=== PATIENT | male | born 1975 | race Caucasian/White ===

== ENCOUNTER 2022-05-17 10:40 | Observation (INO) ==
[2022-05-17] MEDS ORDERED: SODIUM CHLORIDE 0.9% 1000ML 1,000 ML IV ONE (11:02)
[2022-05-17] MEDS ORDERED: KETOROLAC TROMETHAMINE 15 MG/ML VIAL IV STA (11:22)
[2022-05-17] MEDS ORDERED: ONDANSETRON INJ 2 MG/ML 2 ML VIAL IV STA (11:22)
--- NOTE | 2022-05-17 11:28 | Emergency Department Note ---
Impression & Plan Lower abdominal pain, Acute appendicitis, Leukocytosis ED Provider Note NAME: DESEAN IYER AGE: 47 SEX: M : 1975 ARRIVES VIA: Walk-In INFORMANT: [Patient] ED PROVIDER(S): [Andres Santoyo MD] CHIEF COMPLAINT: Abdominal pain HISTORY OF PRESENT ILLNESS: The patient is a 47-year-old male presents to the ED with 4 days of lower abdominal pain which seems to have localized to the right. The pain is a 5 or 6 on a scale of 1 out of 10. The pain is worse with sitting or moving. He has had some nausea without vomiting. He has had a low-grade fever. No urinary complaints. He has not had any respiratory complaints. The patient states that he thought he might be constipated. He did take some MiraLAX and has since had 2 bowel movements although, he does not feel much better. PMHx/PSHx: See Below SOCIAL HISTORY: See Below. PHYSICAL EXAM: GENERAL: Patient is in no acute distress. HEENT: No acute trauma, normocephalic atraumatic, mucous membranes moist, no nasal congestion. NECK: No stridor, no adenopathy, no meningismus, trachea is midline. LUNGS: Clear to auscultation bilaterally, no wheeze, no rhonchi, breath sounds equal. HEART: Without murmurs gallops or rubs, regular rate and rhythm. ABDOMEN: Soft. Moderately tender to the lower abdomen, mostly on the right, right lower quadrant peritonitis suspected. EXTREMITIES: No cyanosis or edema, full range of motion of all the joints without pain or difficulty, no signs for acute trauma. NEUROLOGIC: Oriented x 3, no acute motor or sensory deficits, no focal weakness. SKIN: No rash, no jaundice, no diaphoresis. DIFFERENTIAL DIAGNOSIS: Appendicitis, testicular torsion, diverticulitis, UTI, obstruction, mesenteric ischemia, aortic pathology, inflammatory bowel disease, renal colic, PUD, pancreatitis, biliary pathology, hernia, volvulus, constipation, as well as other pathologies. EMERGENCY DEPARTMENT COURSE/PROCEDURES: Prior/Outside records reviewed: None MEDICAL DECISION MAKING: There is a significant leukocytosis at 21,000, this would be consistent with infection. There is a normal hemoglobin and platelet count. Sodium slightly low at 132. No renal failure. No concerning liver enzyme elevation. No evidence for pancreatitis. Urinalysis showed evidence for dehydration, no obvious infection. COVID test returned negative. Abdominal and pelvis CT did show evidence for appendicitis with rupture and small abscess formation. On exam, the patient was quite tender in the right lower quadrant. Patient received IV saline, 1 L. He was given IV Zosyn as antibiotic coverage. Patient received IV Zofran for nausea, IV Toradol for pain. I did speak with general surgery. The patient was seen in the ED by general surgery. The decision was made to take the patient to the operating room. I did talk with case management, the patient is aware of all of his findings. DISPOSITION: Hospital admission and surgical intervention was warranted. Past Med/Surg History Medical History Acute perforated appendicitis Rapid atrial fibrillation controlled w/ diet and alprazolam- states need alprazolam very rarely- uses 3-4 x per yr-last cardio visit 2012- [place] Surgical History S/P tooth extraction wisdom teeth S/P vasectomy Family History Grandfather Prostate cancer Father Prostate cancer Family/Other Myocardial infarction Diabetes Stroke Denies family history of Ovarian cancer Breast cancer Colorectal cancer Social History Smoking Status: Never smoker Second Hand Exposure: No; Hx Alcohol Use: No Hx Substance Use: No Preferred Language: Estonian Communication Ability: Effective Visual Impairment: No Limitations Hearing Ability: Normal Rock Drill Operator Required: No Beliefs That Will Affect Care: None marital status: Current Living Situation: Spouse and Family current occupational status: employed Other Information That Helps Us Care for You: No Feels Safe at Home: Yes Safety Concerns: Feels Safe At This Time Childhood Exposure to Second-Hand Smoke: Yes Dental Care, Regularly: Yes Physical Activity Frequency: 1-2 Times per Week Seatbelt Use: always Sunscreen Use: Yes Assistive Devices: Contacts and Glasses Allergies Allergies Allergy/AdvReac Type Severity Reaction Status Date / Time No Known Drug Allergies Allergy Unknown ` Verified 05/17/22 12:54 Home Meds Previous Rx's Medication Instructions Recorded alprazolam 0.5 mg tablet 0.5 mg PO DAILY PRN A-fib #20 tabs 10/07/21 Results & Data (ED) Vital Signs Vital Signs - 24 hr 05/17/22 10:44 05/17/22 14:30 05/17/22 16:29 Temperature 36.2 C L 37.6 C H 36.5 C Temperature Source Temporal Artery Scan Oral Temporal Artery Scan Pulse Rate 98 H Pulse Rate [Apical] 99 H 86 Pulse Rhythm [Apical] Regular Regular Pulse Strength [Apical] Normal Respiratory Rate 20 20 18 Respiratory Effort / Characteristics Non-Labored Non-Labored Spontaneous Normal for Patient Non-Labored Spontaneous Normal for Patient Respiratory Depth Normal Normal Normal Respiratory Pattern Regular Regular Blood Pressure 118/75 Blood Pressure [Left Arm] 129/84 147/97 H Blood Pressure Mean 89 Blood Pressure Mean [Left Arm] 99 113 Blood Pressure Position [Left Arm] Semi-fowlers Semi-fowlers Pulse Oximetry 95 96 94 Oxygen Delivery Method Room Air Room Air Oxymask Oxygen Flow Rate 6 Sepsis Recent Fever Within 48 Hours No Sepsis New/Unexplained Change in Mental Status N/A Sepsis Action Taken by Nursing No Action Required Home Medications Current Medication List: was personally reviewed by me Laboratory Data Attestation: I reviewed the patient's lab results. 05/17/22 12:08 05/17/22 12:08 Lab Results 05/17/22 05/17/22 05/17/22 Range/Units 11:33 12:08 12:08 WBC 21.15 H (4.8-10.8) K/ul RBC 4.78 (4.63-6.08) M/uL Hgb 14.4 (14.0-18.0) g/dl Hct 40.4 (40.1-51.0) % MCV 84.5 (80.0-100.0) fL MCH 30.1 (25.0-34.0) pg MCHC 35.6 (32.0-36.0) g/dL RDW Std Deviation 39.2 (36.4-46.3) fL RDW Coeff of Whitney 12.7 (11.5-14.5) % Plt Count 189 (130-400) K/uL MPV 10.6 (9.4-12.4) fL Immature Gran % (Auto) 0.7 % Neut % (Auto) 82.1 % Lymph % (Auto) 6.9 % [place] % (Auto) 10.1 % Eos % (Auto) 0.0 % Baso % (Auto) 0.2 % Neut # (Auto) 17.38 H (1.4-6.5) K/uL Lymph # (Auto) 1.46 (1.2-3.4) K/uL [place] # (Auto) 2.13 H (0.24-0.82) K/uL Eos # (Auto) 0.00 (0-0.50) K/uL Baso # (Auto) 0.04 (0-0.2) K/uL Immature Gran # (Auto) 0.14 H (0.00-0.02) K/uL Sodium 132 L (136-145) mmol/L Potassium 3.7 (3.5-5.1) mmol/L Chloride 100 (98-107) mmol/L Carbon Dioxide 25 (21-32) mmol/L Anion Gap 7 (3-11) BUN 11 (6-23) mg/dl Creatinine 0.82 (0.6-1.4) mg/dl Est Cr Clr Drug Dosing 120.9 ml/min Est GFR ( Amer) 121.2 ml/min Est GFR (Non-Af Amer) 104.6 ml/min BUN/Creatinine Ratio 13.4 (10-20) Glucose 118 H (70-99(Fasting)) mg/dl Calcium 9.1 (8.5-10.1) mg/dl Total Bilirubin 1.2 H (0.2-1.0) mg/dl AST 13 (13-39) U/L ALT 13 (7-52) U/L Alkaline Phosphatase 73 (34-104) U/L Total Protein 7.1 (6.0-8.3) gm/dl Albumin 3.9 (3.4-5.0) gm/dl Globulin 3.2 (2.5-4.0) gm/dl Albumin/Globulin Ratio 1.2 (0.9-2) Lipase 8 L (11-82) U/L Urine Color [place] Urine Appearance Clear (Clear) Urine pH 6.0 (4.5-7.5) Ur Specific [place] 1.029 (1.000-1.030) Urine Protein 1+ H (Negative) Urine Glucose (UA) Negative (Negative) Urine Ketones 4+ H (Negative) Urine Blood Negative (Negative) Urine Nitrite Negative (Negative) Urine Bilirubin 1+ H (Negative) Urine Urobilinogen Positive H (Negative) Ur Leukocyte Esterase Trace H (Negative) Urine WBC (Auto) 1-5 (0-5) /hpf Urine RBC (Auto) 0-4 (0-4) /hpf U Hyaline Cast (Auto) 5-10 H (0-5) /lpf U Epithel Cells (Auto) 10-20 H (0-5) /lpf Urine Bacteria (Auto) Negative (Negative) SARS-CoV-2, RNA, NAAT (NEGATIVE) 05/17/22 Range/Units 12:17 WBC (4.8-10.8) K/ul RBC (4.63-6.08) M/uL Hgb (14.0-18.0) g/dl Hct (40.1-51.0) % MCV (80.0-100.0) fL MCH (25.0-34.0) pg MCHC (32.0-36.0) g/dL RDW Std Deviation (36.4-46.3) fL RDW Coeff of Whitney (11.5-14.5) % Plt Count (130-400) K/uL MPV (9.4-12.4) fL Immature Gran % (Auto) % Neut % (Auto) % Lymph % (Auto) % [place] % (Auto) % Eos % (Auto) % Baso % (Auto) % Neut # (Auto) (1.4-6.5) K/uL Lymph # (Auto) (1.2-3.4) K/uL [place] # (Auto) (0.24-0.82) K/uL Eos # (Auto) (0-0.50) K/uL Baso # (Auto) (0-0.2) K/uL Immature Gran # (Auto) (0.00-0.02) K/uL Sodium (136-145) mmol/L Potassium (3.5-5.1) mmol/L Chloride (98-107) mmol/L Carbon Dioxide (21-32) mmol/L Anion Gap (3-11) BUN (6-23) mg/dl Creatinine (0.6-1.4) mg/dl Est Cr Clr Drug Dosing ml/min Est GFR ( Amer) ml/min Est GFR (Non-Af Amer) ml/min BUN/Creatinine Ratio (10-20) Glucose (70-99(Fasting)) mg/dl Calcium (8.5-10.1) mg/dl Total Bilirubin (0.2-1.0) mg/dl AST (13-39) U/L ALT (7-52) U/L Alkaline Phosphatase (34-104) U/L Total Protein (6.0-8.3) gm/dl Albumin (3.4-5.0) gm/dl Globulin (2.5-4.0) gm/dl Albumin/Globulin Ratio (0.9-2) Lipase (11-82) U/L Urine Color Urine Appearance (Clear) Urine pH (4.5-7.5) Ur Specific [place] (1.000-1.030) Urine Protein (Negative) Urine Glucose (UA) (Negative) Urine Ketones (Negative) Urine Blood (Negative) Urine Nitrite (Negative) Urine Bilirubin (Negative) Urine Urobilinogen (Negative) Ur Leukocyte Esterase (Negative) Urine WBC (Auto) (0-5) /hpf Urine RBC (Auto) (0-4) /hpf U Hyaline Cast (Auto) (0-5) /lpf U Epithel Cells (Auto) (0-5) /lpf Urine Bacteria (Auto) (Negative) SARS-CoV-2, RNA, NAAT NEGATIVE (NEGATIVE) Administered Medications Lactated Ringer's (Lr) 1,000 mls @ 100 mls/hr IV .Q10H YOEL Stop: 06/16/22 18:02 Last Admin: 05/17/22 18:19 Dose: 100 mls/hr Documented By: RT Piperacillin Sod/Tazobactam (Sod 3.375 gm/ Dextrose) 115 mls @ 28.75 mls/hr IV Q8H YOEL; Protocol Stop: 05/27/22 18:29 Last Infusion: 05/17/22 19:07 Dose: 28.8 mls/hr Documented By: Infusion: 05/17/22 18:51 Dose: 0 mls/hr Documented By: Admin: 05/17/22 18:51 Dose: 28.8 mls/hr Documented By: RT Ondansetron HCl (Ondansetron Inj 2 Mg/Ml 2 Ml Vial) 4 mg IV Q4H PRN PRN Reason: Nausea And Vomiting Stop: 06/16/22 18:02 Last Admin: 05/17/22 18:21 Dose: 4 mg Documented By: RT Discontinued Medications Bupivacaine HCl (Bupivacaine 0.5 % 5 Mg/1 Ml Mpf 30ml Vial) Confirm Administered Dose 30 ml .ROUTE .STK-MED ONE Stop: 05/17/22 14:09 Last Admin: 05/17/22 16:11 Dose: 30 ml Documented By: JAMES Sodium Chloride (Nss 1000ml) 1,000 mls @ 999 mls/hr IV .Q1H1M ONE Stop: 05/17/22 12:02 Last Infusion: 05/17/22 13:51 Dose: 0 mls/hr Documented By: Admin: 05/17/22 12:10 Dose: 999 mls/hr Documented By: CHARO Piperacillin Sod/Tazobactam Sod (Zosyn) 4.5 gm in 120 mls @ 240 mls/hr IV NOW ONE Stop: 05/17/22 12:34 Last Infusion: 05/17/22 13:50 Dose: 0 mls/hr Documented By: Admin: 05/17/22 12:22 Dose: 240 mls/hr Documented By: CHARO Ioversol (Optiray 350 100ml) 89 ml IV ONCE ONE Stop: 05/17/22 11:44 Last Admin: 05/17/22 11:44 Dose: 89 ml Documented By: BRENT Ketorolac Tromethamine (Ketorolac Tromethamine 15 Mg/Ml Vial) 15 mg IV NOW STA Stop: 05/17/22 11:23 Last Admin: 05/17/22 12:11 Dose: 15 mg Documented By: CHARO Ondansetron HCl (Ondansetron Inj 2 Mg/Ml 2 Ml Vial) 4 mg IV NOW STA Stop: 05/17/22 11:23 Last Admin: 05/17/22 12:11 Dose: 4 mg Documented By: CHARO Imaging Data Radiologist's Impression: Abdomen/Pelvis CT 05/17/22 11:02 CT SCAN OF THE ABDOMEN AND PELVIS WITH IV CONTRAST CLINICAL HISTORY: Right lower quadrant abdominal pain. COMPARISON STUDY: No priors. TECHNIQUE: Following the IV administration of 89 cc of Optiray 350, CT scan of the abdomen and pelvis is performed from the lung bases to the proximal femora. Images are reviewed in the axial, sagittal, and coronal planes. IV contrast was administered without complication. A dose lowering technique was utilized adhe ring to the principles of ALARA. CT DOSE: 449.51 mGy.cm FINDINGS: Lung bases: The heart is normal in size and without pericardial effusion. The lung bases are clear noting mild bibasilar atelectasis. Liver: The contrast-enhanced liver is normal in size, contour, and attenuation. There is no intrahepatic biliary ductal dilatation. The hepatic veins and portal veins are patent. Gallbladder: Unremarkable. Spleen: Normal in size and attenuation. Pancreas: Unremarkable. Adrenal glands: Unremarkable. Kidneys: The contrast enhanced kidneys are normal in size and without hydronephrosis. The kidneys enhance symmetrically. A circumaortic left renal vein is incidentally noted. Abdominal vasculature: The abdominal aorta is normal in course and caliber. Bowel: There is moderate colonic diverticulosis without CT evidence of acute diverticulitis. No bowel obstruction is seen there is evidence of severe acute appendicitis. The appendix is dilated and fluid-filled, measuring up to 1.3 cm in diameter. The appendiceal wall is thickened and hyperemic with surrounding inflammation and fluid. There is evidence of perforation near the base of the appendix, best seen on axial image #330. There is adjacent calcified ap pendicolith. A gas and fluid-containing developing collection/phlegmon at this site measures up to 3.5 x 1.4 cm in diameter as seen on axial image #319. Peritoneum: No intraperitoneal free air is seen below the diaphragm. A small volume of free fluid is noted in the right lower quadrant and the right paracolic gutter. Lymphadenopathy: None. Pelvic viscera: The bladder is decompressed and not well evaluated. The prostate and seminal vesicles are normal as visualized. Skeletal structures: No lytic or blastic lesions are seen. IMPRESSION: 1. Severe acute appendicitis with evidence of perforation and phlegmonous change/developing abscess. See above. 2. There is no bowel obstruction. 3. Colonic diverticulosis without CT evidence of acute diverticulitis. 4. Additional findings as above. ACT 112: Negative or not required by law. Electronically signed by: Andres Danielle M.D. 05/17/2022 11:58 AM Discharge Plan Visit Data Chief Complaint: Abdominal Pain Stated Complaint: R SIDE ABD PAIN ED Provider: Andres Santoyo Discharge Problem: Lower abdominal pain, Acute appendicitis, Leukocytosis Patient Disposition: Admitted As Inpatient Condition: Fair Discharge Instructions Interventions: ED Discharge Assessment Last Done: 05/17/22 14:09
[2022-05-17] MEDS ORDERED: OPTIRAY 350 100ml IV ONE (11:43)
--- NOTE | 2022-05-17 11:59 | CT Scan Report ---
CT SCAN OF THE ABDOMEN AND PELVIS WITH IV CONTRAST CLINICAL HISTORY: Right lower quadrant abdominal pain. COMPARISON STUDY: No priors. TECHNIQUE: Following the IV administration of 89 cc of Optiray 350, CT scan of the abdomen and pelvi s is performed from the lung bases to the proximal femora. Images are reviewed in the axial, sagittal , and coronal planes. IV contrast was administered without complication. A dose lowering technique wa s utilized adhering to the principles of ALARA. CT DOSE: 449.51 mGy.cm FINDINGS: Lung bases: The heart is normal in size and without pericardial effusion. The lung bases are clear no ting mild bibasilar atelectasis. Liver: The contrast-enhanced liver is normal in size, contour, and attenuation. There is no intrahepa tic biliary ductal dilatation. The hepatic veins and portal veins are patent. Gallbladder: Unremarkable. Spleen: Normal in size and attenuation. Pancreas: Unremarkable. Adrenal glands: Unremarkable. Kidneys: The contrast enhanced kidneys are normal in size and without hydronephrosis. The kidneys enh ance symmetrically. A circumaortic left renal vein is incidentally noted. Abdominal vasculature: The abdominal aorta is normal in course and caliber. Bowel: There is moderate colonic diverticulosis without CT evidence of acute diverticulitis. No bowel obstruction is seen there is evidence of severe acute appendicitis. The appendix is dilated and flui d-filled, measuring up to 1.3 cm in diameter. The appendiceal wall is thickened and hyperemic with reardon rrounding inflammation and fluid. There is evidence of perforation near the base of the appendix, bes t seen on axial image #330. There is adjacent calcified appendicolith. A gas and fluid-containing dev eloping collection/phlegmon at this site measures up to 3.5 x 1.4 cm in diameter as seen on axial kang ge #319. Peritoneum: No intraperitoneal free air is seen below the diaphragm. A small volume of free fluid is noted in the right lower quadrant and the right paracolic gutter. Lymphadenopathy: None. Pelvic viscera: The bladder is decompressed and not well evaluated. The prostate and seminal vesicles are normal as visualized. Skeletal structures: No lytic or blastic lesions are seen. IMPRESSION: 1. Severe acute appendicitis with evidence of perforation and phlegmonous change/developing abscess. See above. 2. There is no bowel obstruction. 3. Colonic diverticulosis without CT evidence of acute diverticulitis. 4. Additional findings as above. ACT 112: Negative or not required by law. Electronically signed by: Andres Danielle M.D. 05/17/2022 11:58 AM
[2022-05-17] MEDS ORDERED: PIPERACILLIN/TAZOBACTAM 4.5 GM/120 ML BAG IV ONE (12:05)
[2022-05-17 12:29] LABS: Appearance Urine Clear (Clear); Bacteria Urine Automated Negative (Negative); Bilirubin Urine 1+ (Negative); Blood Urine Negative (Negative); Color Urine Orange; Glucose Urine UA Negative (Negative); Ketones Urine 4+ (Negative); Leukocyte Esterase Urine Trace (Negative); Nitrite Urine Negative (Negative); Protein Urine 1+ (Negative); RBC Urine Automated 0-4 /hpf (0-4); Specific Gravity Urine 1.029 (1.000-1.030); Urobilinogen Urine Positive (Negative)
[2022-05-17 12:36] LABS: Basophils # (auto) 0.04 K/uL (0-0.2); Basophils % (auto) 0.2 %; Hematocrit (blood only) 40.4 % (40.1-51.0); Hemoglobin 14.4 g/dl (14.0-18.0); Immature Granulocytes # (auto) 0.14 K/uL (0.00-0.02); Immature Granulocytes % (auto) 0.7 %; Lymphocytes # (auto) 1.46 K/uL (1.2-3.4); Lymphocytes % (auto) 6.9 %; Mean Corpuscular Hemoglobin 30.1 pg (25.0-34.0); Mean Corpuscular Hgb Conc 35.6 g/dL (32.0-36.0); Mean Corpuscular Volume 84.5 fL (80.0-100.0); Mean Platelet Volume 10.6 fL (9.4-12.4); Monocytes # (auto) 2.13 K/uL (0.24-0.82); Monocytes % (auto) 10.1 %; Neutrophils # (auto) 17.38 K/uL (1.4-6.5); Neutrophils % (auto) 82.1 %; Platelet Count 189 K/uL (130-400); RDW Coefficient of Variation 12.7 % (11.5-14.5); RDW Standard Deviation 39.2 fL (36.4-46.3); Red Blood Count 4.78 M/uL (4.63-6.08); White Blood Count 21.15 K/ul (4.8-10.8)
[2022-05-17 13:00] LABS: Albumin Globulin Ratio 1.2 (0.9-2); Albumin Level 3.9 gm/dl (3.4-5.0); BUN Creatinine Ratio 13.4 (10-20); Bilirubin,Total 1.2 mg/dl (0.2-1.0); Calcium 9.1 mg/dl (8.5-10.1); Creatinine Clr Calc Pharmacy 120.9 ml/min; Est GFR (African American) 121.2 ml/min; Est GFR (Non-African American) 104.6 ml/min; Globulin 3.2 gm/dl (2.5-4.0); Potassium 3.7 mmol/L (3.5-5.1); Total Protein 7.1 gm/dl (6.0-8.3)
--- NOTE | 2022-05-17 13:40 | History & Physical Report ---
Date of Service May 17, 2022 Assessment & Plan (1) Acute perforated appendicitis: Plan: 47 year old male with perforated appendicitis and developing abscess. We discussed his options to include surgery versus observation with antibiotics. Based on my review of the CT scan I believe he would be amenable to surgery. He does understand that this may require an open surgery or possibly a colon resection. However I would err on the side of caution of treating the infection and placing a drain if we are unable to safely remove the appendix. plan for laparoscopic appendectomy, possible open, possible bowel resection risks discussed to include but not limited to bleeding, infection, abscess, open surgery, damage to surrounding structures, bowel resection, need for future or more extensive surgery, failure to treat symptoms, and risks of anesthesia. Patient will need admitted for several days for antibiotic therapy and would likely have a drain History of Present Illness Chief Complaint: Abdominal pain Primary Care Provider: Devonte Camacho MD 47-year-old otherwise healthy male presented to the emergency department with several days of abdominal pain. [place] lower abdominal pain starting Monday and felt like constipation. Worse Monday night. Some relief on Monday. Had some nausea but no vomiting. He took some MiraLAX this morning. His son had tested positive for COVID and he thought maybe his symptoms were attributed to that. He did have some chills and some low-grade fevers at home. He has never had symptoms like this before. He had a prior screening colonoscopy which appeared to be normal. CT scan in the emergency department showed perforated appendicitis with developing abscess. No prior abdominal surgeries. History of paroxysmal A. fib that was treated with anxiolytics and Lopressor, and he has not had recurrence since. He is not on blood thinners. Allergies Allergy/AdvReac Type Severity Reaction Status Date / Time No Known Drug Allergies Allergy Unknown ` Verified 05/17/22 12:54 Home Medications Medication Instructions Recorded Confirmed Type alprazolam 0.5 mg tablet 0.5 mg PO DAILY PRN A-fib #20 tabs 10/07/21 05/17/22 Rx aspirin 81 mg chewable tablet 81 mg PO QAM 11/19/21 05/17/22 History Past Med/Surg History Medical History (Updated 05/17/22 @ 13:36 by Mikie Tiardo DO, FACS) Acute perforated appendicitis Rapid atrial fibrillation controlled w/ diet and alprazolam- states need alprazolam very rarely- uses 3-4 x per yr-last cardio visit 2012- [place] [facility] Surgical History S/P tooth extraction wisdom teeth S/P vasectomy Family History Grandfather Prostate cancer Father Prostate cancer Family/Other Myocardial infarction Diabetes Stroke Denies family history of Ovarian cancer Breast cancer Colorectal cancer Social History Smoking Status: Never smoker Second Hand Exposure: No; Hx Alcohol Use: No Hx Substance Use: No Preferred Language: Amharic Communication Ability: Effective Visual Impairment: No Limitations Hearing Ability: Normal Table Lever Operator Required: No Beliefs That Will Affect Care: None marital status: Current Living Situation: Spouse and Family current occupational status: employed Feels Safe at Home: Yes Childhood Exposure to Second-Hand Smoke: Yes Dental Care, Regularly: Yes Physical Activity Frequency: 1-2 Times per Week Seatbelt Use: always Sunscreen Use: Yes Assistive Devices: Contacts and Glasses Review of Systems Review of Systems: All systems reviewed & are unremarkable except as noted in HPI & below Physical Exam Constitutional: WD/WN, vitals as above Respiratory: normal respiratory effort, lungs clear to auscultation Cardiovascular: RRR, no murmur, no edema Gastrointestinal (Abdomen): Percussion/Palpation: + abdomen tender (Tender to palpation right lower quadrant with guarding), + guarding and abdomen soft; abdomen not rigid, no hepatosplenomegaly and no hernia Results & Data Results & Data ([facility]) Vital Signs (Past 12 Hours) Vital Signs Temp Pulse Resp BP Pulse Ox O2 Del Method 05/17/22 10:44 36.2 C L 98 H 20 118/75 95 Room Air Laboratory Results Laboratory Results - last 24 hr 05/17/22 05/17/22 05/17/22 11:33 12:08 12:08 WBC 21.15 H RBC 4.78 Hgb 14.4 Hct 40.4 MCV 84.5 MCH 30.1 MCHC 35.6 RDW Std Deviation 39.2 RDW Coeff of Whitney 12.7 Plt Count 189 MPV 10.6 Immature Gran % (Auto) 0.7 Neut % (Auto) 82.1 Lymph % (Auto) 6.9 [place] % (Auto) 10.1 Eos % (Auto) 0.0 Baso % (Auto) 0.2 Neut # (Auto) 17.38 H Lymph # (Auto) 1.46 [place] # (Auto) 2.13 H Eos # (Auto) 0.00 Baso # (Auto) 0.04 Immature Gran # (Auto) 0.14 H Sodium 132 L Potassium 3.7 Chloride 100 Carbon Dioxide 25 Anion Gap 7 BUN 11 Creatinine 0.82 Est Cr Clr Drug Dosing 120.9 Est GFR ( Amer) 121.2 Est GFR (Non-Af Amer) 104.6 BUN/Creatinine Ratio 13.4 Glucose 118 H Calcium 9.1 Total Bilirubin 1.2 H AST 13 ALT 13 Alkaline Phosphatase 73 Total Protein 7.1 Albumin 3.9 Globulin 3.2 Albumin/Globulin Ratio 1.2 Lipase 8 L Urine Color [place] Urine Appearance Clear Urine pH 6.0 Ur Specific [place] 1.029 Urine Protein 1+ H Urine Glucose (UA) Negative Urine Ketones 4+ H Urine Blood Negative Urine Nitrite Negative Urine Bilirubin 1+ H Urine Urobilinogen Positive H Ur Leukocyte Esterase Trace H Urine WBC (Auto) 1-5 Urine RBC (Auto) 0-4 U Hyaline Cast (Auto) 5-10 H U Epithel Cells (Auto) 10-20 H Urine Bacteria (Auto) Negative SARS-CoV-2, RNA, NAAT 05/17/22 12:17 WBC RBC Hgb Hct MCV MCH MCHC RDW Std Deviation RDW Coeff of [place] Plt Count MPV Immature Gran % (Auto) Neut % (Auto) Lymph % (Auto) [place] % (Auto) Eos % (Auto) Baso % (Auto) Neut # (Auto) Lymph # (Auto) [place] # (Auto) Eos # (Auto) Baso # (Auto) Immature Gran # (Auto) Sodium Potassium Chloride Carbon Dioxide Anion Gap BUN Creatinine Est Cr Clr Drug Dosing Est GFR ( Amer) Est GFR (Non-Af Amer) BUN/Creatinine Ratio Glucose Calcium Total Bilirubin AST ALT Alkaline Phosphatase Total Protein Albumin Globulin Albumin/Globulin Ratio Lipase Urine Color Urine Appearance Urine pH Ur Specific [place] Urine Protein Urine Glucose (UA) Urine Ketones Urine Blood Urine Nitrite Urine Bilirubin Urine Urobilinogen Ur Leukocyte Esterase Urine WBC (Auto) Urine RBC (Auto) U Hyaline Cast (Auto) U Epithel Cells (Auto) Urine Bacteria (Auto) SARS-CoV-2, RNA, NAAT NEGATIVE Diagnostic Findings CT SCAN OF THE ABDOMEN AND PELVIS WITH IV CONTRAST CLINICAL HISTORY: Right lower quadrant abdominal pain. COMPARISON STUDY: No priors. TECHNIQUE: Following the IV administration of 89 cc of Optiray 350, CT scan of the abdomen and pelvis is performed from the lung bases to the proximal femora. Images are reviewed in the axial, sagittal, and coronal planes. IV contrast was administered without complication. A dose lowering technique was utilized adhering to the principles of ALARA. CT DOSE: 449.51 mGy.cm FINDINGS: Lung bases: The heart is normal in size and without pericardial effusion. The lung bases are clear noting mild bibasilar atelectasis. Liver: The contrast-enhanced liver is normal in size, contour, and attenuation. There is no intrahepatic biliary ductal dilatation. The hepatic veins and portal veins are patent. Gallbladder: Unremarkable. Spleen: Normal in size and attenuation. Pancreas: Unremarkable. Adrenal glands: Unremarkable. Kidneys: The contrast enhanced kidneys are normal in size and without hydronephrosis. The kidneys enhance symmetrically. A circumaortic left renal vein is incidentally noted. Abdominal vasculature: The abdominal aorta is normal in course and caliber. Bowel: There is moderate colonic diverticulosis without CT evidence of acute diverticulitis. No bowel obstruction is seen there is evidence of severe acute appendicitis. The appendix is dilated and fluid-filled, measuring up to 1.3 cm in diameter. The appendiceal wall is thickened and hyperemic with surrounding inflammation and fluid. There is evidence of perforation near the base of the appendix, best seen on axial image #330. There is adjacent calcified appendicolith. A gas and fluid-containing developing collection/phlegmon at this site measures up to 3.5 x 1.4 cm in diameter as seen on axial image #319. Peritoneum: No intraperitoneal free air is seen below the diaphragm. A small volume of free fluid is noted in the right lower quadrant and the right paracolic gutter. Lymphadenopathy: None. Pelvic viscera: The bladder is decompressed and not well evaluated. The prostate and seminal vesicles are normal as visualized. Skeletal structures: No lytic or blastic lesions are seen. IMPRESSION: 1. Severe acute appendicitis with evidence of perforation and phlegmonous change/developing abscess. See above. 2. There is no bowel obstruction. 3. Colonic diverticulosis without CT evidence of acute diverticulitis. 4. Additional findings as above. PG Care Time/CCT Total # of Minutes Spent Total Time Spent with Patient: Total time spent is greater than 50% in coordination of care (as documented) at patient's floor/unit and/or counseling patient: Coding Level of Care Code 96033 Initial Inpt Care Lvl 2 Diagnoses Acute perforated appendicitis K35.32
--- NOTE | 2022-05-17 13:59 | Anesthesiology Consultation ---
Date of Service May 17, 2022 Assessment & Plan (1) Encounter for pre-operative examination: Chart Review Chart Review: Acceptable Risk for Surgery and Patient NOT seen in Pre Admission Testing Consults Requested none History Surgery Operation Date: 05/17/22 12:15 Proposed Procedures p Laparoscopic Appendectomy Possible Open - Mikie Tirado DO, FACS Height/Weight Height: 6 ft Weight: 89.9 kg Allergies Allergy/AdvReac Type Severity Reaction Status Date / Time No Known Drug Allergies Allergy Unknown ` Verified 05/17/22 12:54 Medications Home Medications Medication Instructions Recorded Confirmed Last Taken alprazolam 0.5 mg tablet 0.5 mg PO DAILY PRN A-fib #20 tabs 10/07/21 05/17/22 Unknown aspirin 81 mg chewable tablet 81 mg PO QAM 11/19/21 05/17/22 11/26/21 Past Medical History Medical History Acute perforated appendicitis Rapid atrial fibrillation controlled w/ diet and alprazolam- states need alprazolam very rarely- uses 3-4 x per yr-[place] [facility] [place] [place] [facility] Past Family History Family History Grandfather Prostate cancer Father Prostate cancer Family/Other Myocardial infarction Diabetes Stroke Denies family history of Ovarian cancer Breast cancer Colorectal cancer Past Surgical History Surgical History S/P tooth extraction wisdom teeth S/P vasectomy Social History Smoking Status: Never smoker Hx Alcohol Use: No Hx Substance Use: No substance use type: does not use Physical Exam Vital Signs Last Vital Signs Temp 97.2 F L 05/17/22 10:44 Pulse 98 H 05/17/22 10:44 Resp 20 05/17/22 10:44 BP 118/75 05/17/22 10:44 Pulse Ox 95 05/17/22 10:44 O2 Del Method 05/17/22 10:44 Testing Laboratory Results 05/17/22 12:08 05/17/22 12:08 Urine Color [place] 05/17/22 11:33 Urine Appearance Clear (Clear) 05/17/22 11:33 Urine pH 6.0 (4.5-7.5) 05/17/22 11:33 Ur Specific [place] 1.029 (1.000-1.030) 05/17/22 11:33 Urine Protein 1+ (Negative) H 05/17/22 11:33 Urine Glucose (UA) Negative (Negative) 05/17/22 11:33 Urine Ketones 4+ (Negative) H 05/17/22 11:33 Urine Nitrite Negative (Negative) 05/17/22 11:33 Ur Leukocyte Esterase Trace (Negative) H 05/17/22 11:33 Urine WBC (Auto) 1-5 /hpf (0-5) 05/17/22 11:33 Urine RBC (Auto) 0-4 /hpf (0-4) 05/17/22 11:33 U Hyaline Cast (Auto) 5-10 /lpf (0-5) H 05/17/22 11:33 U Epithel Cells (Auto) 10-20 /lpf (0-5) H 05/17/22 11:33 Urine Bacteria (Auto) Negative (Negative) 05/17/22 11:33
[2022-05-17] MEDS ORDERED: ATROPINE SULFATE 0.1 MG/ML 10ML SYR IV PRN (14:00)
[2022-05-17] MEDS ORDERED: ePHEDrine sulfate 50 MG/ML AMP IV PRN (14:00)
[2022-05-17] MEDS ORDERED: ONDANSETRON INJ 2 MG/ML 2 ML VIAL IV PRN ×2 (14:00→18:03)
[2022-05-17] MEDS ORDERED: fentaNYL citrate 100 MCG/2 ML VIAL IV PRN (14:00)
[2022-05-17] MEDS ORDERED: BUPIVACAINE 0.5 % 5 MG/1 ML MPF 30ML VIAL ONE (14:08)
[2022-05-17] MEDS ORDERED: fentaNYL citrate 100 MCG/2 ML VIAL ONE ×2 (14:10→15:46)
[2022-05-17] MEDS ORDERED: MIDAZOLAM HCL 1 MG/ML 2ML VIAL ONE (14:10)
[2022-05-17] MEDS ORDERED: ROCURONIUM BROMIDE 10 MG/ML 5 ML VIAL IV ONE (14:11)
[2022-05-17] MEDS ORDERED: PROPOFOL IV EMULSION 10 MG/ML 20 ML VIAL IV ONE (14:11)
[2022-05-17] MEDS ORDERED: LIDOCAINE 2% MPF LOCAL 5 ML VIAL INFIL ONE (14:11)
[2022-05-17] MEDS ORDERED: DEXAMETHASONE SOD INJ 4 MG/ML VIAL ONE (14:12)
[2022-05-17] MEDS ORDERED: ONDANSETRON INJ 2 MG/ML 2 ML VIAL ONE (14:13)
[2022-05-17] MEDS ORDERED: ACETAMINOPHEN 1000 MG/100 ML IV IV ONE (14:13)
[2022-05-17] MEDS ORDERED: GLYCOPYRROLATE 0.2 MG/ML VIAL ONE (15:13)
[2022-05-17] MEDS ORDERED: NEOSTIGMINE METHYLSULFATE 1 MG/ML 10ML VIAL ONE (15:13)
[2022-05-17] MEDS ORDERED: KETOROLAC 30 MG/ML VIAL ONE (16:02)
--- NOTE | 2022-05-17 16:28 | Operative Report ---
PG Post Operative Report Pre & Post Diagnosis Operation Date: 05/17/22 12:15 Pre-Op Diagnosis: Acute perforated appendicitis. Post-Op Diagnosis: Acute perforated appendicitis with abscess. I identified the patient and participated in the time-out.: Yes Procedure Operation Date: 05/17/22 12:15 Actual Procedures p Laparoscopic Appendectomy - Mikie Tirado DO, GINNY Surgeon Mikie Tirado DO, FACS [employer] [facility] Alvarez Estimated Blood Loss 20 Findings Consistent with Post-Op Diagnosis Perforated appendicitis with contained abscess. Perforation near base but healthy base near the cecum. Partial cecectomy performed. Drain placed. Specimens Appendix Anesthesia Type General Complications none Disposition Accompanied Patient To Recovery: No Disposition: Recovery Room Indications 47-year-old male presented with signs symptoms of acute perforated appendicitis with possible abscess. After discussion of his options to include observation with antibiotics versus surgery, the patient elected for surgery. Plan for laparoscopic appendectomy, possible open, possible bowel resection. He understands that given the perforated nature of his appendicitis he is at increased risk for complications. The risks of the procedure were discussed, all questions were answered, and the patient agreed to proceed with surgery as planned. Description of Procedure The patient was properly identified, consented, and taken to the operating room where he was placed in the supine position. General endotracheal anesthesia was induced. SCDs and a safety belt were placed. Preoperative antibiotics were administered. A Peñaloza catheter was not placed. The patient's abdomen was prepped and draped in the standard sterile fashion. Surgical timeout was performed and all parties were in agreement that this was the correct patient and procedure to be performed and we continued as planned. An incision was made just to the left of the umbilicus with cautery. The Veress needle was inserted and saline drop test confirmed entry into the abdomen. The abdomen was insufflated with carbon dioxide to the patient tolerated without incident. The Veress needle was removed and the abdomen was entered using a 5 mm trocar and the Optiview technique. The introducer was removed and the abdomen was examined. There was no damage from initial trocar or Veress needle placement. There was some inflammation in the right lower quadrant but no evidence of free perforation. The 12 mm port was then placed in the left lower quadrant with care not to damage the epigastric vessels and a 5 mm port was placed in the suprapubic midline with care not to damage the bladder. The patient was placed in the Trendelenburg position and rotated towards the left. The small bowel was swept away from the right lower quadrant. There were adhesions of the cecum and omentum to the anterior abdominal wall in the right lower quadrant. This was taken down with the Sonicision. The ileum was also adherent to the right lower quadrant and this was taken down with blunt dissection and the Sonicision. Eventually we were able to identify the distal half of the appendix which appeared to be inflamed but nonperforated. I then mobilized a portion of the right colon by taking down the white line of Toldt. During this portion of the procedure the abscess cavity was entered. There was some feculent material along with purulent material. This area was suctioned and copiously irrigated. The colon was closely examined and there was no evidence of damage to the colon. Once the terminal ileum and right colon were mobilized I was able to tease the perforated proximal appendix away from the surrounding tissues. The appendix was perforated approximately 1 to 2 cm from the base. The base appeared healthy but it was very short. Therefore I elected to perform a partial cecectomy. The base of the appendix and a portion of the cecum was stapled with a 60 mm purple loaded stapler. This was later checked and there was no evidence of leak. Hemostasis was good. The remainder of the mesoappendix was taken down with the Sonicision. Hemostasis was good. The appendix was placed in an Endo Catch bag and removed through the umbilical port site. The right lower quadrant and pelvis was copiously irrigated and hemostasis was found to be good. A 10 mm flat HUSAM drain was then placed into the abdomen and laid along the right lower quadrant and into the pelvis. This exited through the left periumbilical incision. This was secured into place wit h a 2-0 nylon suture. The fascia of the 12 mm left lower quadrant port was then closed with an 0 Vicryl suture in [id number] fashion using the Endo Close device. Hemostasis was good. The camera was removed and the abdomen was allowed to collapse. The port sites were closed with 4-0 Monocryl running subcuticular sutures. Dermabond was placed over the wounds. Dressing sponge was placed over the HUSAM drain. The patient was extubated in the operating room and taken to the PACU where he recovered without apparent incident. All sponge, instrument and needle counts were correct at the conclusion of the procedure. The patient tolerated the procedure well. FLOR Goncalves, the physician's pathology assistant was present and scrubbed for the entire to the procedure she was critical in positioning the patient, prepping and draping, retraction and exposure, driving the laparoscope, removal of the appendix, and closure of the incisions and placement of the dressings. I attest to the content of the Intraoperative Record and any orders documented therein. Any exceptions are noted below.
--- NOTE | 2022-05-17 17:00 | Anesthesiology Progress Note ---
Date of Service May 17, 2022 Anesthesia Post Procedure Vital Signs Vital Signs: Temp Pulse Pulse Resp BP BP Pulse Ox 05/17/22 16:55 84 18 146/82 H 97 05/17/22 16:35 88 20 154/94 H 99 05/17/22 16:45 86 18 150/86 H 99 05/17/22 16:29 97.7 F 86 18 147/97 H 94 05/17/22 14:30 99.7 F H 99 H 20 129/84 96 05/17/22 10:44 97.2 F L 98 H 20 118/75 95 O2 Del Method O2 Flow Rate 05/17/22 16:55 Oxymask 2 05/17/22 16:35 Oxymask 6 05/17/22 16:45 Oxymask 4 05/17/22 16:29 Oxymask 6 05/17/22 14:30 Room Air 05/17/22 10:44 Room Air Transfer of Care Handoff Completed per policy Notes Mental Status: alert / awake / arousable and participated in evaluation Patient Amnestic to Procedure: Yes Nausea / Vomiting: adequately controlled Pain: adequately controlled Airway Patency, RR, SpO2: stable & adequate BP & HR: stable & adequate Hydration State: stable & adequate Anesthetic Complications: no major complications apparent and Pt Satisfied with anesthetic care
[2022-05-17] MEDS ORDERED: MoRPHine SULFATE 2 MG/ML CARP IV PRN (18:03)
[2022-05-17] MEDS ORDERED: MoRPHine SULFATE 4 MG/ML 1 ML CARP\\VIAL IV PRN (18:03)
[2022-05-17] MEDS: LACTATED RINGER'S 1,000 ML IV SCH ×2 (18:19→20:15)
[2022-05-17] MEDS: PIPERACILLIN/TAZOBACTAM 3.375 GM in DEXTROSE 5% 100 ML IV SCH (18:51)
[2022-05-17] MEDS: ACETAMINOPHEN 1,000 MG/100 ML VIAL IV SCH (20:16)
[2022-05-18] MEDS: PIPERACILLIN/TAZOBACTAM 3.375 GM in DEXTROSE 5% 100 ML IV SCH ×3 (02:21→17:29)
[2022-05-18] MEDS: ACETAMINOPHEN 1,000 MG/100 ML VIAL IV SCH ×3 (03:55→19:51)
[2022-05-18] MEDS: LACTATED RINGER'S 1,000 ML IV SCH ×2 (06:04→17:26)
[2022-05-18 06:13] LABS: Basophils # (auto) 0.02 K/uL (0-0.2); Basophils % (auto) 0.1 %; Hematocrit (blood only) 37.2 % (40.1-51.0); Hemoglobin 12.9 g/dl (14.0-18.0); Immature Granulocytes # (auto) 0.13 K/uL (0.00-0.02); Immature Granulocytes % (auto) 0.7 %; Lymphocytes # (auto) 0.81 K/uL (1.2-3.4); Lymphocytes % (auto) 4.3 %; Mean Corpuscular Hemoglobin 29.7 pg (25.0-34.0); Mean Corpuscular Hgb Conc 34.7 g/dL (32.0-36.0); Mean Corpuscular Volume 85.5 fL (80.0-100.0); Mean Platelet Volume 10.5 fL (9.4-12.4); Monocytes # (auto) 1.05 K/uL (0.24-0.82); Monocytes % (auto) 5.6 %; Neutrophils # (auto) 16.72 K/uL (1.4-6.5); Neutrophils % (auto) 89.3 %; Platelet Count 186 K/uL (130-400); RDW Coefficient of Variation 12.8 % (11.5-14.5); RDW Standard Deviation 39.8 fL (36.4-46.3); Red Blood Count 4.35 M/uL (4.63-6.08); White Blood Count 18.73 K/ul (4.8-10.8)
[2022-05-18 06:35] LABS: BUN Creatinine Ratio 14.1 (10-20); Calcium 8.4 mg/dl (8.5-10.1); Creatinine Clr Calc Pharmacy 116.7 ml/min; Est GFR (African American) 119.4 ml/min; Potassium 3.9 mmol/L (3.5-5.1)
[2022-05-18] MEDS ORDERED: oxyCODONE HCL IR 5 MG TAB (IMMEDIATE RELEASE) PO PRN ×2 (07:36)
--- NOTE | 2022-05-18 08:46 | Surgery Progress Note ---
Date of Service May 18, 2022 Assessment & Plan (1) Acute appendicitis: Plan: POD#1 laparoscopic appendectomy for perforated appendicitis WBC 18(21), Hbg 12.9. Vitals stable, pt afebrile Abdomen soft, expected tenderness to R side of abdomen, HUSAM drain serosang Tolerating clears, will advance to full liquid this AM; decrease IVF Continue IV abx today Po pain meds ordered OOB ambulating as tolerates Admission and Anticipated Discharge Date Admission Date: May 17, 2022 Supervising Physician Co-Signing Physician Notes Patient seen examined, labs reviewed, agree with above. 47-year-old male status post laparoscopic appendectomy for perforated appendicitis with abscess, POD #1. Doing well, pain improved. Febrile overnight but this is improved. Tolerated liquids today. On exam he is afebrile stable vitals. Incisions with Dermabond, no evidence of infection. HUSAM with serosanguineous output. WBC 18 down from 21, otherwise labs unremarkable. We will advance to low fiber diet, continue on IV antibiotics till WBC normalizes and afebrile x24 hours. Will be discharged to home on oral antibiotics. Subjective Patient is doing well. Has some expected post surgical pain, but much better than admission. Tolerating clears no nausea/vomiting. Physical Exam Physical Exam: awake/alert Respiratory: normal respiratory effort Gastrointestinal (Abdomen): Inspection/Auscultation: + abdominal surgical incision (c/d/i , skin glue, no signs of infection) and + abdominal surgical drain present (serosangeneous ); abdomen not distended Percussion/Palpation: + abdomen tender (some discomfort elicited to palpation in the right lower/mid abdomen) and abdomen soft Results & Data ([facility]) Vital Signs (Past 12 Hours) Vital Signs Temp Pulse Resp BP Pulse Ox O2 Del Method 05/18/22 08:14 36.6 C 70 18 126/78 95 Room Air 05/18/22 03:36 36.7 C 67 17 124/75 95 Room Air 05/17/22 22:00 36.5 C 75 20 131/87 95 Room Air PG Care Time/CCT Total # of Minutes Spent Total Time Spent with Patient: Total time spent is greater than 50% in coordination of care (as documented) at patient's floor/unit and/or counseling patient: Coding Level of Care Code None Diagnoses Acute appendicitis K35.33 Acute appendicitis type: with localized peritonitis Appendicitis abscess presence: with abscess Appendicitis gangrene presence: unspecified whether gangrene present Appendicitis perforation presence: with perforation (1) Acute appendicitis Acute appendicitis type: with localized peritonitis Appendicitis abscess presence: with abscess Appendicitis gangrene presence: unspecified whether gangrene present Appendicitis perforation presence: with perforation Qualified Code(s): K35.33 - Acute appendicitis with perforation, localized peritonitis, and gangrene, with abscess
[2022-05-18] MEDS: ASPIRIN 81 MG ECTAB PO SCH (09:34)
[2022-05-19] MEDS: PIPERACILLIN/TAZOBACTAM 3.375 GM in DEXTROSE 5% 100 ML IV SCH ×2 (02:22→09:57)
[2022-05-19] MEDS: ACETAMINOPHEN 1,000 MG/100 ML VIAL IV SCH ×2 (04:21→11:39)
[2022-05-19] MEDS: LACTATED RINGER'S 1,000 ML IV SCH (06:18)
--- NOTE | 2022-05-19 07:51 | Surgery Progress Note ---
Date of Service May 19, 2022 Assessment & Plan (1) Acute perforated appendicitis: Plan: POD#2 laparoscopic appendectomy for perforated appendicitis Labs are pending this AM. Vitals stable, pt afebrile Abdomen soft, expected tenderness to R side of abdomen, JONA drain serosang Will advance to low fiber diet, d/c IVF Continue IV while in house, will transition to PO upon dispo OOB ambulating as tolerates Will check on later today once labs return and see how he faired with diet for possible dispo today vs nicki JONA drain to be removed prior to discharge Admission and Anticipated Discharge Date Admission Date: May 17, 2022 Supervising Physician Co-Signing Physician Notes Patient discussed with FLOR Goncalves, labs reviewed, agree with above. 47-year-old male POD #2 laparoscopic appendectomy and drain placement for perforated appendicitis with abscess. He tolerated his low fiber diet and his vital signs are stable. His abdominal pain is significantly improved. His WBC was downtrending to 12. His drain was removed, and he was discharged home this afternoon with 1 week of antibiotics. He can follow-up in the clinic in 2 weeks or sooner with questions or concerns. Wound care instructions, activity restrictions, and return precautions given. Subjective Patient is doing well. Had an episode of upper R sided pain last evening he describes as a gas bubble, that dissipated on his own. This morning he is feeling well, pain controlled, no nausea/vomiting. Tolerated full liquids. Having + BM's. Physical Exam Physical Exam: awake/alert, no distress Gastrointestinal (Abdomen): Inspection/Auscultation: + abdominal surgical incision (c/d/i with skin glue) and + abdominal surgical drain present (jona drain serosang (30cc)); abdomen not distended Percussion/Palpation: abdomen soft; abdomen nontender Results & Data ([facility]) Vital Signs (Past 12 Hours) Vital Signs Temp Pulse Resp BP Pulse Ox O2 Del Method 05/19/22 07:41 36.4 C L 72 16 154/91 H 95 Room Air 05/18/22 21:29 36.6 C 59 L 18 119/72 95 Room Air PG Care Time/CCT Total # of Minutes Spent Total Time Spent with Patient: Total time spent is greater than 50% in coordination of care (as documented) at patient's floor/unit and/or counseling patient: Coding Level of Care Code None Diagnoses Acute perforated appendicitis K35.32
[2022-05-19 09:15] LABS: Basophils # (auto) 0.01 K/uL (0-0.2); Basophils % (auto) 0.1 %; Hemoglobin 12.3 g/dl (14.0-18.0); Immature Granulocytes # (auto) 0.05 K/uL (0.00-0.02); Immature Granulocytes % (auto) 0.4 %; Lymphocytes # (auto) 1.91 K/uL (1.2-3.4); Lymphocytes % (auto) 15.3 %; Mean Corpuscular Hemoglobin 29.3 pg (25.0-34.0); Mean Corpuscular Hgb Conc 34.2 g/dL (32.0-36.0); Mean Corpuscular Volume 85.7 fL (80.0-100.0); Mean Platelet Volume 10.8 fL (9.4-12.4); Monocytes # (auto) 0.92 K/uL (0.24-0.82); Monocytes % (auto) 7.4 %; Neutrophils # (auto) 9.62 K/uL (1.4-6.5); Neutrophils % (auto) 76.8 %; Platelet Count 217 K/uL (130-400); RDW Coefficient of Variation 13.2 % (11.5-14.5); RDW Standard Deviation 40.6 fL (36.4-46.3); White Blood Count 12.51 K/ul (4.8-10.8)
[2022-05-19 09:44] LABS: BUN Creatinine Ratio 17.9 (10-20); Calcium 8.8 mg/dl (8.5-10.1); Est GFR (Non-African American) 103.5 ml/min; Potassium 3.5 mmol/L (3.5-5.1)
[2022-05-19] MEDS: ASPIRIN 81 MG ECTAB PO SCH (09:57)
--- NOTE | 2022-05-19 15:17 | Discharge Summary ---
Date of Service May 19, 2022 Admission HPI Per Admitting Provider 47-year-old otherwise healthy male presented to the emergency department with several days of abdominal pain. [place] lower abdominal pain starting Monday and felt like constipation. Worse Monday night. Some relief on Monday. Had some nausea but no vomiting. He took some MiraLAX this morning. His son had tested positive for COVID and he thought maybe his symptoms were attributed to that. He did have some chills and some low-grade fevers at home. He has never had symptoms like this before. He had a prior screening colonoscopy which appeared to be normal. CT scan in the emergency department showed perforated appendicitis with developing abscess. No prior abdominal surgeries. History of paroxysmal A. fib that was treated with anxiolytics and Lopressor, and he has not had recurrence since. He is not on blood thinners. Principal Diagnosis acute perforated appendicitis Discharge Exam awake/alert, no distress Respiratory normal respiratory effort Gastrointestinal (Abdomen) Inspection/Auscultation: + abdominal surgical incision (c/d/i) and + abdominal surgical drain present (serosangenous output. ); abdomen not distended Percussion/Palpation: abdomen soft; abdomen nontender Discharge Data Allergies Allergy/AdvReac Type Severity Reaction Status Date / Time No Known Drug Allergies Allergy Unknown ` Verified 05/17/22 12:54 Consultations 05/17/22 12:32 Consult General Surgery Stat Procedures Performed Operation Date: 05/17/22 12:15 Actual Procedures p Laparoscopic Appendectomy - Mikie Tirado DO, FACS Ordered Studies 05/17/22 11:02 CT Abd and Pelvis [CT abd pelvis IV con only] Stat Hospital Course (1) Acute perforated appendicitis: This is a 47yM who presented to the [facility] ED on 05/17/22 with abdominal pain. Workup in the ED showed a WBC of [address] a/p concerning for severe acute appendicitis with concern of perforation and developing abscess. The patient was tender to palpation in the RLQ. Patient made NPO with IVF, given pre-op abx, and booked for the OR. On 05/17 the patient went to the OR with laparoscopic appendec kaushik chapin found to have a perforated appendix. The patient tolerated the procedure well, see operative report for full details. Post operatively the patient's pain was managed on prn meds, he remained on IV abx, and had a HUSAM drain in place. His diet was slowly advanced from clear liquids, to fulls, then to low fiber diet. He tolerated this well. Pain remained controlled throughout his stay. He did have return of bowel function. He was able to void and ambulate on his own without issues. On POD#3 the patient's HUSAM drain (which remained serosanguineous in character) was removed without issues. Incisions were c/d/i. Pain controlled on oral medication. He was deemed stable for discharge to home on a course of oral antibiotics and plans to follow up in clinic within 2 weeks. Total Time Total Time Spent Total Time Spent (In Minutes): 15 Discharge Plan Discharge Items Patient Disposition: Home - Self-Care Reason For Visit: S/P APPENDECTOMY Discharge Diagnosis: appendectomy Condition on Discharge: Fair Activity: Per Instructions section Lifting: No more than 10 pounds Bathing Comment: may shower; no soaking in tubs/pools Exercise/Sports: Wait until after follow-up appointment Driving/Machine Use: no driving while taking any narcotics for pain Non-emergency contact: Surgeon Call non-emergency contact if: you have any medication questions, your symptoms worsen, your pain is not controlled, your pain is concerning for you, you have a fever, your temperature is above 101.5, your wound has increased redness, your wound has increased drainage and your wound pain has increased Follow-up/Referrals: ProDevonte MD [Primary Care Provider] - Mikie Tirado DO, FACS [Physician] - 05/31/22 10:30 am (Please call to schedule follow up in clinic within 2 weeks) Diet: Low Fiber Addtl Attending Provider Instructions: You may cover the area where your surgical drain was with dry gauze/tape until healed and no longer draining fluid. If you do not need the narcotic for pain you may purchase Tylenol and/or Ibuprofen over the counter if needed for pain. Take per manufacturers instructions Complete the full course of antibiotic prescribed to you Pending Studies at Discharge: Yes Studies:: surgical pathology Stand-Alone Forms: [facility], Smoking Cessation Medications and DC Order Prescriptions: New oxycodone 5 mg tablet 5 - 10 mg PO .[id number] PRN (Reason: pain, for initial therapy, max 6 tabs per day) Qty: 15 0RF amoxicillin-pot clavulanate 875-125 mg tablet 1 tab PO Q12H Qty: 14 0RF Continued alprazolam 0.5 mg tablet 0.5 mg PO DAILY PRN (Reason: A-fib) Qty: 20 0RF Rx Instructions: takes very rarely Discharge Orders: Discharge Order (Routine); Ordered 05/19/22 Ordered By: Martina Gallegos/Other Patient Handouts: Appendectomy Lap Dc Admission Data Admit Date/Time: 05/17/22 16:30 Attending Provider: Mikie Tirado Admit Provider: Mikie Tirado Primary Care Provider: Devonte Camacho Other Providers: Mikie Tirado Other Interventions: Discharge Summary Assessment (RN) Last Done: 05/19/22 12:13 Coding Level of Care Code HOSP INP/OBS DISCH 30 MIN/LESS Diagnoses Acute perforated appendicitis K35.32
== END 2022-05-19 13:21 | disposition home or self-care (01) ==
LOC: ED 10:40 → OR 14:43 → 3N 14:43 → OR 14:50